=== PATIENT | female | born 1975 | race Two or more races ===

== ENCOUNTER 2024-02-24 23:51 | Emergency (ER) | payer OTHER ==
[~2024-02-24] VITALS: Ht 160 cm; Wt 77.1 kg
[~2024-02-24 23:51] MED LIST: ALBU90OI INH; ALBU90OI6 INH; AMOX500 PO; AZIT250 PO; CETI5; Colace100 MG PO; ENAL20 PO; ERGO400; ERYT333ERA PO; ESOM20; GUAI120S1 PO; Golytely Solu4000 ML PO; HYDACE5 PO; HYDCHL25 PO; HYDGUAL120 PO; IRON 100 PLUS1 EACH; METPRE4DP PO; OXYACE5T PO; RABE20 PO; RXCODGUASY PO
[2024-02-25] MEDS ORDERED: Dicyclomine HCl 10 MG/ML 2ML Amp IM ONE (01:40)
[2024-02-25] MEDS ORDERED: Ketorolac Tromethamine 30mg Vial IV ONE (01:40)
[2024-02-25] MEDS ORDERED: NS 1,000 ML IV SCH (01:40)
[2024-02-25 02:25] LABS: BASOPHILS ABSOLUTE AUTO 0.05 K/mm3 (0.00-0.23); BASOPHILS PERCENT AUTO 0 % (0-2); EOSINOPHILS ABSOLUTE AUTO 0.13 K/mm3 (0.00-0.68); EOSINOPHILS PERCENT AUTO 1 % (0-6); Hematocrit 37.2 % (33.0-51.0); Hemoglobin 12.3 g/dL (11.5-16.0); IMMATURE GRAN ABSOLUTE AUTO 0.03 K/mm3 (0.00-0.10); IMMATURE GRAN PERCENT AUTO 0 % (0-1); LYMPHOCYTES ABSOLUTE AUTO 0.95 K/mm3 (0.84-5.20); LYMPHOCYTES PERCENT AUTO 7 % (21-46); MONOCYTES ABSOLUTE AUTO 0.89 K/mm3 (0.16-1.47); MONOCYTES PERCENT AUTO 6 % (4-13); Mean Corpuscular HGB 27.9 pg (26.0-34.0); Mean Corpuscular HGB Conc 33.1 g/dL (31.5-36.5); Mean Corpuscular Volume 84 fL (80-100); Mean Platelet Volume 9.7 fL (9.1-12.4); NEUTROPHILS ABSOLUTE AUTO 12.44 K/mm3 (1.96-9.15); NEUTROPHILS PERCENT AUTO 86 % (41-73); Platelet Count 289 K/mm3 (150-400); RDW Coefficient Variation 15.1 % (11.7-14.2); RDW Standard Deviation 46.3 fL (35.1-46.3); Red Blood Cell Count 4.41 M/mm3 (3.80-5.20); White Blood Cell Count 14.49 K/mm3 (4.00-11.30)
[2024-02-25 02:30] LABS: Source, Urine Clean Catch
[2024-02-25 02:34] LABS: Bilirubin, Urine Neg (Neg); Blood, Urine 1+ (Neg); Glucose Qualitative, Urine Neg (Neg); Ketones, Urine Neg (Neg); Leukocyte Esterase, Urine Neg (Neg); Nitrite, Urine Neg (Neg); Protein, Urine 1+ (Neg); Urobilinogen, Urine NORM (Normal)
[2024-02-25 02:36] LABS: Appearance, Urine Clear (Clear); Color, Urine Yellow (P-Yellow)
[2024-02-25 02:43] LABS: Bacteria Not Seen /hpf; Red Blood Cells, Urine 0-2 /hpf (0-2); Squamous Epithelial Cells Few /hpf (Few); White Blood Cells, Urine Not Seen /hpf (0-5)
[2024-02-25 02:44] LABS: U Amphetamine Screen Not Detected; U Barbituate Screen Not Detected; U Benzodiazapine Screen Not Detected; U Cannabinoids Screen Not Detected; U Cocaine Screen Not Detected; U Methadone Screen Not Detected; U Methamphetamine Screen Not Detected; U Opiates Screen Not Detected; U Phencyclidine Screen Not Detected
[2024-02-25 02:44] LABS: Magnesium, Blood 1.8 mg/dL (1.6-2.4)
[2024-02-25 02:45] LABS: Albumin, Blood 3.7 g/dL (3.4-5.0); Albumin/Globulin Ratio 0.9 (0.8-1.8); Bilirubin, Total 0.3 mg/dL (0.1-1.0); Bun/Creatinine Ratio 22.4 (12.0-20.0); Calcium, Blood 8.5 mg/dL (8.5-10.1); Creatinine, Blood 0.67 mg/dL (0.40-1.00); Potassium, Blood 3.7 mmol/L (3.5-5.5); Total Protein, Blood 7.7 g/dL (6.4-8.2)
[2024-02-25 02:45] LABS: U Buprenorphine Screen Not Detected; U Oxycodone Screen Not Detected
[2024-02-25 03:40] VITALS: BP 155/97
== END 2024-02-25 04:58 | disposition left against medical advice (07) ==
LOC: ER 23:51
PROVIDERS: Emergency Medicine
DX: R19.7 Diarrhea, unspecified (principal); R10.84 Generalized abdominal pain; I10 Essential (primary) hypertension; J45.909 Unspecified asthma, uncomplicated; Z79.899 Other long term (current) drug therapy
CPT/HCPCS: 74019; 74177; 80053; 81001; 83605; 83735; 84703; 85025; 87086; 96361; 96372-59; 96374-59; 99284-25; J0500; J1885; J7030; Q9967